=== PATIENT | female | born 1990 | race Caucasian/White ===

== ENCOUNTER 2017-12-02 09:25 | Emergency (ER) | payer BC ==
--- NOTE | 2017-12-02 10:15 | UC ---
Abdominal Pain Female HPI - HPI Summary HPI Summary: 1. urinary frequency , burning x 2 days no fever, no chills, no flank pain 2. abdominal pain x at least one year has been having this pain for years but getting worse over the past one year, pain is epigastric and also lower abd , no radiation , worse with eating, + nausea and vomiting + diarrhea, no constipation , has tried change in her diet , tried anti acid , pain might improve at times, but never goes away - History of Current Complaint Chief Complaint: UCGU Stated Complaint: URINARY Time Seen by Provider: 12/02/17 09:53 Hx Obtained From: Patient Hx Last Menstrual Period: 12/02/17 ?: No Onset/Duration: Gradual Onset, Still Present - for years Timing: Intermittent Episodes Lasting: Severity Initially: Moderate Severity Currently: Moderate Pain Intensity: 5 Location: Discrete At: RUQ, Discrete At: RLQ, Epigastric, Suprapubic Radiates: No Character: Aching, Cramping Aggravating Factor(s): Food, Movement Alleviating Factor(s): Nothing Associated Signs and Symptoms: Positive: Urinary Symptoms, Nausea, Vomiting, Diarrhea. Negative: Fever, Cough, Chest Pain, Dizzy, Back Pain, Constipation, Blood in Stool, Decreased Appetite, Vaginal Bleeding, Vaginal Discharge Allergies/Adverse Reactions: Allergies Allergy/AdvReac Type Severity Reaction Status Date / Time ciprofloxacin [From Cipro] Allergy Shortness Verified 12/02/17 09:45 of Breath Home Medications: Home Medications Amphetamine MIXED SALTS TAB* [Adderall TAB*] 20 mg QAM 12/02/17 [History Confirmed 12/02/17] Norethindrone-Ethinyl Estrad [Briellyn Tablet] 1 tab DAILY 12/02/17 [History Confirmed 12/02/17] Venlafaxine ER (NF) [Effexor ER (NF)] 150 mg QAM 12/02/17 [History Confirmed ] Venlafaxine EXT RELEASE CAP* [Effexor Xr CAP*] 75 mg QAM 12/02/17 [History Confirmed 12/02/17] PMH/Surg Hx/FS Hx/Imm Hx Previously Healthy: Yes - Surgical History Surgical History: Yes Surgery Procedure, Year, and Place: Gallbladder 2016. RIGHT ankle/RIGHT shoulder 2016 - Family History Known Family History: Negative: Diabetes - Social History Alcohol Use: Weekly Alcohol Amount: 5 DRINKS/WEEK Substance Use Type: None Smoking Status (MU): Never Smoked Tobacco - Immunization History Most Recent Tetanus Shot: UTD Review of Systems Constitutional: Negative Skin: Negative Eyes: Negative ENT: Negative Respiratory: Negative Cardiovascular: Negative Gastrointestinal: Abdominal Pain, Vomiting, Diarrhea, Nausea Genitourinary: Dysuria Is Patient Immunocompromised?: No All Other Systems Reviewed And Are Negative: Yes Physical Exam Triage Information Reviewed: Yes Appearance: Well-Appearing, No Pain Distress, Well-Nourished Vital Signs: Initial Vital Signs Temp 98.3 F 12/02/17 09:47 Pulse 72 12/02/17 09:47 Resp 16 12/02/17 09:47 BP 124/77 12/02/17 09:47 Pulse Ox 99 12/02/17 09:47 Vital Signs Reviewed: Yes Eye Exam: Normal Eyes: Positive: Conjunctiva Clear ENT: Positive: Normal ENT inspection, Hearing grossly normal, Pharynx normal Neck: Positive: Supple, Nontender, No Lymphadenopathy Respiratory: Positive: Chest non-tender, Lungs clear, Normal breath sounds Cardiovascular: Positive: RRR, No Murmur, Pulses Normal Abdominal Exam: Normal Abdomen Description: Positive: Soft, Other: - epigastric tenderness. Negative: CVA Tenderness (R), CVA Tenderness (L), Distended, Guarding, Hepatomegaly, McBurney's Point Tenderness Musculoskeletal Exam: Normal Skin Exam: Normal Abd Pain Female Course/Dx - Differential Dx/Diagnosis Provider Diagnoses: UTI. chronic abdominal pain Discharge - Sign-Out/Discharge Documenting (check all that apply): Patient Departure All imaging exams completed and their final reports reviewed: No Studies - Discharge Plan Condition: Stable Disposition: HOME Prescriptions: Sulfamethox/Trimethoprim DS* [Bactrim DS 800/160 TAB*] 1 tab PO BID #14 tab Patient Education Materials: Urinary Tract Infection in Women (DC), Chronic Abdominal Pain (ED) Referrals: Thee Aggarwal MD [Medical Doctor] - As Soon As Possible No Primary Care Phys,NOPCP [Primary Care Provider] - Additional Instructions: chronic abdominal pain for years will make a referral to GI for eval and tx - Billing Disposition and Condition Condition: STABLE Disposition: Home
== END 2017-12-02 10:17 | disposition home or self-care (01) ==
LOC: UCCORT 09:25
DX: N39.0 Urinary tract infection, site not specified (principal); R10.13 Epigastric pain; Z88.3 Allergy status to other anti-infective agents
CPT/HCPCS: 81003; 87077; 87086; 99202; G0463

== ENCOUNTER 2018-01-22 10:40 | Emergency (ER) | payer SELFPAY ==
--- NOTE | 2018-01-23 09:53 | UC ---
Discharge - Sign-Out/Discharge Documenting (check all that apply): Post-Discharge Follow Up All imaging exams completed and their final reports reviewed: No Studies - Discharge Plan Condition: Stable Disposition: LEFT WITHOUT BEING SEEN Referrals: No Primary Care Phys,NOPCP [Primary Care Provider] - - Billing Disposition and Condition Condition: STABLE Disposition: Left Without Being Seen
== END 2018-01-22 12:04 | disposition left against medical advice (07) ==
LOC: UCCORT 10:40
DX: M54.9 Dorsalgia, unspecified (principal); R11.2 Nausea with vomiting, unspecified; R52 Pain, unspecified; Z53.21 Procedure and treatment not carried out due to patient leaving prior to being seen by health care provider

== ENCOUNTER 2019-06-21 13:47 | Emergency (ER) | payer OTHER ==
--- OUTSIDE RECORDS SUMMARY | 2019-06-21 14:09 | XMS REPORT | Continuity of Care Document ---
:1990 External Reference #:[id number] Author Name Digna Foss PA Address [address] 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 Onset: 12/11/2016 Disorder of shoulder Hair Jones M.D. Onset: 12/11/2016 Sprain of ankle Digna Foss PA Onset: 09/14/2018 Derangement of knee Digna Foss PA Onset: 02/24/2018 Microscopic hematuria Steve Sharif M.D. Onset: 06/03/2017 Social History Type Date Description Comments Sex Unknown Tobacco Use Start: Unknown Never Smoked Cigarettes ETOH Use Currently consumes alcohol socially ETOH Use Drinks 2 Alcoholic Beverages Per Week Tobacco Use Start: Unknown Patient has never smoked Recreational Drug Use Denies Drug Use Smoking Status Reviewed: 05/24/19 Patient has never smoked Allergies, Adverse Reactions, Alerts Active Allergies Reaction Severity Comments Date Cipro 01/10/2016 Bee Sting 01/10/2016 Medications Active Medications SIG Qnty Indications Ordering Provider Date Briellyn 1 by mouth every Unknown 0.4-35mg-mcg day Tablets Ventolin HFA prn Unknown 108(90Base) mcg/Act Aerosol Venlafaxine HCL ER 1 daily Unknown 150mg Caps ER 24HR Epinephrine as directed prn Unknown 0.3mg/0.3ML Solution Auto-Inject Immunizations Description No Information Available Vital Signs Date Vital Result Comment 05/24/2019 12:55pm BP Systolic Sitting Left Arm 120 mmHg BP Diastolic Sitting Left Arm 76 mmHg Body Temperature 96.8 F Heart Rate 56 /min Respiratory Rate 20 /min Weight 190.00 lb BSA (Body Surface Area) 1.98 m2 [place] body weight in kilograms 61 kg O2 % BldC Oximetry 98 % 09/14/2018 1:56pm BP Systolic Sitting Left Arm 114 mmHg BP Diastolic Sitting Left Arm 72 mmHg Body Temperature 97.3 F Heart Rate 66 /min [place] body weight in kilograms 61 kg O2 % BldC Oximetry 98 % Results Description No Information Available Procedures Description No Information Available Medical Devices Description No Information Available Encounters Type Date Location Provider Dx Diagnosis Office Visit 05/24/2019 Orthopaedic Office Digna Foss, M25.561 Pain in right 1:00p PA knee M23.8x1 Other internal derangements of right knee Assessments Date Code Description Provider 05/24/2019 M25.561 Pain in right knee Digna Foss PA 05/24/2019 M23.8x1 Other internal derangements of right knee Digna Foss PA Plan of Treatment No Information Available Functional Status Description No Information Available Mental Status Description No Information Available Referrals Description No Information Available
[2019-06-21 14:17] VITALS: BP 131/79
--- NOTE | 2019-06-21 14:41 | UC ---
Skin Complaint HPI - HPI Summary HPI Summary: Pt c/o of sudden onset of rash to face that began ~ 1 week ago while pt was playing soccer. Pt states ~ 3 weeks ago she changed brand and type of facial makeup. She reports that ~ 1 week ago she was playing soccer and she noticed that right side of cheek began to "burn" and she developed a rash. The rash improved once she stopped playing soccer. Pt states she played soccer again after that and states that same burning feeling and rash appeared across face and not just under right eye. Pt reports now she has tiny bumps, pustules and spider veins across face. - History of Current Complaint Chief Complaint: UCGeneralIllness Time Seen by Provider: 06/21/19 14:36 Stated Complaint: SKIN COMPLAINT/FACE Hx Obtained From: Patient Hx Last Menstrual Period: 05/23/19 ?: No Onset/Duration: Sudden Onset, Lasting Days, Still Present Skin Exposure Onset/Duration: Days Ago Timing: Constant Onset Severity: Mild Current Severity: Mild Pain Intensity: 0 Location: Face Character: Redness, Raised Aggravating Factor(s): Other - exertion Alleviating Factor(s): Nothing Associated Signs & Symptoms: Positive: Rash - Allergy/Home Medications Allergies/Adverse Reactions: Allergies Allergy/AdvReac Type Severity Reaction Status Date / Time ciprofloxacin [From Cipro] Allergy Shortness Verified 06/21/19 14:14 of Breath Home Medications: Home Medications Norethindrone-Ethinyl Estrad [Briellyn Tablet] 1 tab DAILY 12/02/17 [History Confirmed 06/21/19] Venlafaxine ER (NF) [Effexor ER (NF)] 150 mg QAM 12/02/17 [History Confirmed 01/01] Venlafaxine EXT RELEASE CAP* [Effexor Xr CAP*] 75 mg QAM 12/02/17 [History Confirmed 06/21/19] metroNIDAZOLE [Metronidazole 0.75 % gel] 1 applic TOPICAL BID #1 gel 06/21/19 [ Rx] PMH/Surg Hx/FS Hx/Imm Hx Previously Healthy: Yes - Surgical History Surgical History: Yes Surgery Procedure, Year, and Place: Cholecystectomy 2016. R ankle/R shoulder 2016 - Family History Known Family History: Negative: Diabetes - Social History Occupation: Employed Full-time Lives: With Family Alcohol Use: Weekly Alcohol Amount: 5 DRINKS/WEEK Substance Use Type: None Smoking Status (MU): Never Smoked Tobacco Have You Smoked in the Last Year: No - Immunization History Most Recent Tetanus Shot: UTD Vaccination Up to Date: Yes Review of Systems All Other Systems Reviewed And Are Negative: Yes Constitutional: Positive: Negative Skin: Positive: Rash - face ENT: Positive: Negative Respiratory: Positive: Negative Cardiovascular: Positive: Negative Gastrointestinal: Positive: Negative Genitourinary: Positive: Negative Motor: Positive: Negative Neurovascular: Positive: Negative Musculoskeletal: Positive: Negative Neurological/Mental Status: Positive: Negative Psychological: Positive: Negative Is Patient Immunocompromised?: No Physical Exam Triage Information Reviewed: Yes Appearance: Well-Appearing Vital Signs: Initial Vital Signs Temp 98.3 F 06/21/19 14:15 Pulse 68 06/21/19 14:15 Resp 16 06/21/19 14:15 BP 131/79 06/21/19 14:15 Pulse Ox 100 06/21/19 14:15 Vital Signs Reviewed: Yes Eye Exam: Normal ENT: Positive: Hearing grossly normal Dental Exam: Normal Neck exam: Normal Respiratory Exam: Normal Cardiovascular Exam: Normal Musculoskeletal Exam: Normal Neurological Exam: Normal Psychological Exam: Normal Skin: Positive: Rashes - tiny papules and pustules scattered on face Course/Dx - Differential Diagnoses - Skin Complaint Differential Diagnoses: Cellulitis, Eczema, Tinea - Diagnoses Provider Diagnosis: Facial rash Discharge ED - Sign-Out/Discharge Documenting (check all that apply): Patient Departure All imaging exams completed and their final reports reviewed: No Studies - Discharge Plan Condition: Stable Disposition: HOME Prescriptions: metroNIDAZOLE [Metronidazole 0.75 % gel] 1 applic TOPICAL BID #1 gel Patient Education Materials: Acute Rash (ED) Referrals: [facility] [place] [facility] REFERRAL [Outside] - If Needed Suresh Maher MD [Medical Doctor] - If Needed No Primary Care Phys,NOPCP [Primary Care Provider] - - Billing Disposition and Condition Condition: STABLE Disposition: Home - Attestation Statements Provider Attestation: This patient was not seen by me. I was available for consult. Chart reviewed. MARIA C
== END 2019-06-21 14:52 | disposition home or self-care (01) ==
LOC: UCCORT 13:47
DX: R21 Rash and other nonspecific skin eruption (principal); Z88.1 Allergy status to other antibiotic agents
CPT/HCPCS: 99212; G0463